=== PATIENT | female | born 1960 | race Asian ===

== ENCOUNTER 2023-07-15 14:51 | Inpatient (IN) | payer BC ==
[~2023-07-15] VITALS: Ht 157.5 cm; Wt 64.0 kg
[2023-07-15] MEDS ORDERED: IV NS 0.9% 1,000 ML BAG IV ONE (15:30)
[2023-07-15 15:52] LABS: BASOPHILS # (AUTO) 0.1 K/uL (0.0-0.2); BASOPHILS % (AUTO) 1.2 % (0.0-2.0); EOSINOPHILS # (AUTO) 0.3 K/uL (0.0-0.7); EOSINOPHILS % (AUTO) 4.5 % (0.0-6.0); HEMATOCRIT 38 % (33-45); HEMOGLOBIN 12.6 g/dL (11.5-14.8); LYMPHOCYTES # (AUTO) 1.2 K/uL (0.8-4.8); MEAN CORPUSCULAR HEMOGLOBIN 30 PG (26.0-33.0); MEAN CORPUSCULAR HGB CONC 33 g/dl (31.0-36.0); MEAN CORPUSCULAR VOLUME 90 fL (82-100); MONOCYTES # (AUTO) 0.4 K/uL (0.1-1.30); MONOCYTES % (AUTO) 5.6 % (2.0-12.0); NEUTROPHILS # (AUTO) 4.7 K/uL (1.8-8.9); NEUTROPHILS % (AUTO) 70.7 % (43.0-81.0); PLATELET COUNT (AUTO) 344 K/uL (150-450); RED BLOOD CELL COUNT(AUTO) 4.27 MIL/uL (4.0-5.2); RED CELL DISTRIBUTION WIDTH 14.8 % (11.5-15.0); WHITE BLOOD COUNT (AUTO) 6.6 K/uL (4.3-11.0)
[2023-07-15 16:09] LABS: ALANINE AMINOTRANSFERASE 28 U/L (12-78); ALBUMIN 3.9 g/dL (3.4-5.0); ALKALINE PHOSPHATASE 107 U/L (46-116); ASPARTATE AMINOTRANSFERASE 26 U/L (15-37); BILIRUBIN,DIRECT 0.1 mg/dL (0.0-0.2); BILIRUBIN,TOTAL 0.3 mg/dL (0.2-1.0); CALCIUM, SERUM 9.2 mg/dL (8.5-10.1); CARBON DIOXIDE 27 mmol/L (21-32); CHLORIDE 100 mmol/L (98-107); CREATININE 0.8 mg/dL (0.6-1.3); GLUCOSE 114 mg/dL (74-106); POTASSIUM 3.4 mmol/L (3.5-5.1); SODIUM SERUM 137 mmol/L (136-145); TOTAL PROTEIN, SERUM 8.4 g/dL (6.4-8.2); UREA NITROGEN, BLOOD 21 mg/dL (7-18)
[2023-07-15 16:35] LABS: APPEARANCE,URINE CLEAR (CLEAR); BILIRUBIN,URINE NEGATIVE (NEGATIVE); BLOOD, URINE 2+ Ery/uL (NEGATIVE); COLOR,URINE YELLOW (YELLOW); KETONES,URINE NEGATIVE (NEGATIVE); LEUKOCYTE ESTERASE ,URINE NEGATIVE (NEGATIVE); NITRITE, URINE NEGATIVE (NEGATIVE); PROTEIN,URINE NEGATIVE (NEGATIVE); UGLUCOSE NEGATIVE (NEGATIVE); UROBILINOGEN,URINE 0.2 EU/dL (0.2)
[2023-07-15 17:01] LABS: ADD URINE CULTURE NO; BACTERIA,URINE None seen /HPF (None Seen); WBC,URINE 0-2 /HPF (0-3)
[2023-07-15] MEDS ORDERED: IOHEXOL-350 100 ML VIAL IV ONE (18:46)
[2023-07-15] MEDS ORDERED: IV NS 0.9% 250 ML IV ONE (18:46)
[2023-07-15] MEDS ORDERED: ASPIRIN 325 MG TABLET PO ONE (19:00)
[2023-07-15 19:02] LABS: T4 (THYROXINE) 6.9 ug/dL (4.7-13.3)
[2023-07-15] MEDS ORDERED: ENOXAPARIN SODIUM 60 MG/0.6 ML DISP.SYRIN SQ ONE ×2 (19:30→19:35)
[2023-07-15] MEDS ORDERED: MAG HYDROX/AL HYDROX/SIMETH 30 ML UDC PO PRN (20:00)
[2023-07-15] MEDS ORDERED: MAGNESIUM HYDROXIDE 30 ML UDC PO PRN (20:00)
[2023-07-15] MEDS ORDERED: ACETAMINOPHEN 325 MG TABLET PO PRN (20:00)
[2023-07-15] MEDS ORDERED: ONDANSETRON HCL/PF 4 MG/2 ML VIAL IVP PRN (20:00)
[2023-07-15] MEDS ORDERED: ZOLPIDEM TARTRATE 5 MG TABLET PO PRN (20:00)
[2023-07-15] MEDS ORDERED: Z GUARD REMEDY 4 OZ OINT TP PRN (20:00)
[2023-07-15 20:30] VITALS: BP 169/83; TEMP 98; O2SAT 99
[2023-07-15] MEDS: ATORVASTATIN 10 MG TABLET PO SCH (22:55)
[2023-07-15] MEDS: LOSARTAN POTASSIUM 25 MG TABLET PO SCH (22:55)
[2023-07-16] VITALS: BP 142/81; TEMP 97.9; O2SAT 98
[2023-07-16 00:09] VITALS: BP 147/81; TEMP 97.9; O2SAT 98
[2023-07-16 04:00] VITALS: BP 123/68; TEMP 97.9; O2SAT 98
[2023-07-16 06:49] LABS: BASOPHILS # (AUTO) 0.1 K/uL (0.0-0.2); BASOPHILS % (AUTO) 2.6 % (0.0-2.0); EOSINOPHILS # (AUTO) 0.2 K/uL (0.0-0.7); EOSINOPHILS % (AUTO) 5.4 % (0.0-6.0); HEMATOCRIT 37 % (33-45); HEMOGLOBIN 12.1 g/dL (11.5-14.8); LYMPHOCYTES # (AUTO) 1.4 K/uL (0.8-4.8); LYMPHOCYTES % (AUTO) 32.6 % (20.0-44.0); MEAN CORPUSCULAR HEMOGLOBIN 30 PG (26.0-33.0); MEAN CORPUSCULAR HGB CONC 33 g/dl (31.0-36.0); MEAN CORPUSCULAR VOLUME 89 fL (82-100); MONOCYTES # (AUTO) 0.4 K/uL (0.1-1.30); MONOCYTES % (AUTO) 8.8 % (2.0-12.0); NEUTROPHILS # (AUTO) 2.2 K/uL (1.8-8.9); NEUTROPHILS % (AUTO) 50.6 % (43.0-81.0); PLATELET COUNT (AUTO) 333 K/uL (150-450); RED BLOOD CELL COUNT(AUTO) 4.12 MIL/uL (4.0-5.2); RED CELL DISTRIBUTION WIDTH 15.3 % (11.5-15.0); WHITE BLOOD COUNT (AUTO) 4.4 K/uL (4.3-11.0)
[2023-07-16 07:17] LABS: CALCIUM, SERUM 8.9 mg/dL (8.5-10.1); CREATININE 0.7 mg/dL (0.6-1.3); MAGNESIUM 2.2 mg/dL (1.8-2.4); PHOSPHORUS 3.7 mg/dL (2.5-4.9); POTASSIUM 3.3 mmol/L (3.5-5.1)
[2023-07-16] MEDS ORDERED: LEVOTHYROXINE SODIUM 125 MCG TABLET PO SCH (07:30)
[2023-07-16] MEDS ORDERED: LEVOTHYROXINE SODIUM 100 MCG TABLET PO SCH (07:30)
[2023-07-16] MEDS ORDERED: LEVO100T9 PO (08:11)
[2023-07-16] MEDS ORDERED: ROSU10TA29 PO (08:11)
[2023-07-16] MEDS ORDERED: PANT40TA49 PO (08:11)
[2023-07-16] MEDS ORDERED: LOSA50TA39 PO (08:11)
[2023-07-16] MEDS: ASPIRIN 81 MG TAB.CHEW PO SCH (08:20)
[2023-07-16] MEDS: LOSARTAN POTASSIUM 25 MG TABLET PO SCH (08:21)
[2023-07-16] MEDS: ENOXAPARIN SODIUM 60 MG/0.6 ML DISP.SYRIN SQ SCH ×2 (08:22→20:50)
[2023-07-16] MEDS: IV NS 0.9% 1,000 ML IV PRN (08:24)
[2023-07-16 08:48] VITALS: BP 143/85; TEMP 98.1; O2SAT 99
[2023-07-16] MEDS ORDERED: ATORVASTATIN 10 MG TABLET PO SCH (09:00)
[2023-07-16] MEDS ORDERED: POTASSIUM CHLORIDE 20 MEQ TAB.PRT.SR PO ONE (10:00)
[2023-07-16 16:24] VITALS: BP 159/76; TEMP 96.8; O2SAT 98
[2023-07-16] MEDS: LOSARTAN POTASSIUM 50 MG TABLET PO SCH (16:58)
[2023-07-16 20:00] VITALS: BP_SYST 147; BP_SYST 166; BP_DIAS 75; BP_DIAS 78; TEMP 98.4; O2SAT 98
[2023-07-16] MEDS: ATORVASTATIN 10 MG TABLET PO SCH (21:27)
[2023-07-17] VITALS: BP 147/75; TEMP 98.4; O2SAT 98
[2023-07-17 05:00] VITALS: BP 154/74; TEMP 97.3; O2SAT 100
[2023-07-17] MEDS: IV NS 0.9% 1,000 ML IV PRN (06:50)
[2023-07-17 07:16] LABS: BASOPHILS # (AUTO) 0.1 K/uL (0.0-0.2); BASOPHILS % (AUTO) 2.1 % (0.0-2.0); EOSINOPHILS # (AUTO) 0.3 K/uL (0.0-0.7); EOSINOPHILS % (AUTO) 5.8 % (0.0-6.0); HEMATOCRIT 36 % (33-45); LYMPHOCYTES # (AUTO) 1.2 K/uL (0.8-4.8); LYMPHOCYTES % (AUTO) 26.6 % (20.0-44.0); MEAN CORPUSCULAR HEMOGLOBIN 29 PG (26.0-33.0); MEAN CORPUSCULAR HGB CONC 33 g/dl (31.0-36.0); MEAN CORPUSCULAR VOLUME 89 fL (82-100); MONOCYTES # (AUTO) 0.4 K/uL (0.1-1.30); MONOCYTES % (AUTO) 8.3 % (2.0-12.0); NEUTROPHILS # (AUTO) 2.5 K/uL (1.8-8.9); NEUTROPHILS % (AUTO) 57.2 % (43.0-81.0); PLATELET COUNT (AUTO) 312 K/uL (150-450); RED BLOOD CELL COUNT(AUTO) 4.08 MIL/uL (4.0-5.2); RED CELL DISTRIBUTION WIDTH 14.6 % (11.5-15.0); WHITE BLOOD COUNT (AUTO) 4.3 K/uL (4.3-11.0)
[2023-07-17] MEDS ORDERED: LEVOTHYROXINE SODIUM 125 MCG TABLET PO SCH (07:30)
[2023-07-17] MEDS ORDERED: LEVOTHYROXINE SODIUM 100 MCG TABLET PO SCH (07:30)
[2023-07-17 07:54] LABS: ALBUMIN 3.6 g/dL (3.4-5.0); BILIRUBIN,TOTAL 0.6 mg/dL (0.2-1.0); CALCIUM, SERUM 9.1 mg/dL (8.5-10.1); CREATININE 0.7 mg/dL (0.6-1.3); MAGNESIUM 2.2 mg/dL (1.8-2.4); PHOSPHORUS 4.6 mg/dL (2.5-4.9); POTASSIUM 3.2 mmol/L (3.5-5.1); TOTAL PROTEIN, SERUM 7.6 g/dL (6.4-8.2)
[2023-07-17 08:00] VITALS: BP 152/70; TEMP 97.7; O2SAT 99
[2023-07-17 08:04] LABS: THYROID STIMULATING HORMONE 48.169 uIU/mL (0.358-3.74)
[2023-07-17] MEDS: POTASSIUM CHLORIDE 20 MEQ TAB.PRT.SR PO SCH ×2 (10:21→11:29)
[2023-07-17] MEDS: LOSARTAN POTASSIUM 50 MG TABLET PO SCH ×2 (10:22→18:32)
[2023-07-17] MEDS ORDERED: DIAZEPAM 5 MG/ML 2 ML DISP.SYRIN IV ONE (11:00)
[2023-07-17] MEDS ORDERED: CT SWABBABLE VALVE TRANS SET 1 EA INFUS.SET MC ONE (11:04)
[2023-07-17] MEDS ORDERED: IOHEXOL-350 100 ML VIAL IV ONE (11:04)
[2023-07-17] MEDS ORDERED: IV NS 0.9% 250 ML IV ONE (11:04)
[2023-07-17] MEDS ORDERED: NITROGLYCERIN 0.4 MG/TAB BOTTLE ONE (11:28)
[2023-07-17] MEDS ORDERED: NITROGLYCERIN 0.4 MG/TAB BOTTLE SL ONE (11:30)
[2023-07-17] MEDS ORDERED: METOPROLOL TARTRATE INJ 5 MG/5 ML AMPUL IVP PRN (11:30)
[2023-07-17 12:00] VITALS: BP 148/74; TEMP 97.3; O2SAT 97
[2023-07-17] MEDS ORDERED: LEVO125T PO (15:51)
[2023-07-17 16:00] VITALS: BP 134/60; TEMP 98.2; O2SAT 96
[2023-07-17 18:32] VITALS: BP 142/70
[2023-07-17] MEDS: ASPIRIN 81 MG TAB.CHEW PO SCH (18:32)
== END 2023-07-17 19:00 | disposition home or self-care (01) | DRG 282 ==
LOC: ER 14:51 → TELE 20:14
PROVIDERS: ADMIT Nurse Practitioner Acute Care; ATTEND Nurse Practitioner Acute Care
DX: I21.A1 Myocardial infarction type 2 (principal); I10 Essential (primary) hypertension; E03.9 Hypothyroidism, unspecified; E78.5 Hyperlipidemia, unspecified; E87.6 Hypokalemia; Z20.822 Contact with and (suspected) exposure to COVID-19; Z82.49 Family history of ischemic heart disease and other diseases of the circulatory system
CPT/HCPCS: 36415; 70450-TC; 71045-TC; 75574; 80048-TC; 80053-TC; 80061-TC; 80076-TC; 81001; 83735-TC; 84100-TC; 84436-TC; 84439-TC; 84443-TC; 84481; 84484-TC; 85025-TC; 93307-TC; A4223; G0378; J1650; J7030; J7050; Q9967